=== PATIENT | male | born 1965 | race Caucasian/White ===

== ENCOUNTER → 2017-03-03 | Day surgery (SDC) | payer OTHER ==
[~2017-03-03] VITALS: Ht 177.8 cm; Wt 74.8 kg
[~2017-03-03] MED LIST: 0.9% Sodium Chloride 1,000 ML IV PRN; AZIT500T5 PO; Sodium Chloride LOK Flush 10 mL Syringe IV PRN; fentaNYL-PF 50 mCg/mL 2 mL Inj IVPUSH PRN
[2017-03-03 12:57] VITALS: BP 120/81; PULSE 57; RESP 16; O2SAT 100
[2017-03-03] MEDS: 0.9% Sodium Chloride 1,000 ML IV SCH ×2 (13:01→15:16)
[2017-03-03 15:29] VITALS: BP 118/80; PULSE 74; RESP 16; O2SAT 99
[2017-03-03 15:39] VITALS: BP 112/73; PULSE 75; RESP 16; O2SAT 100
--- NOTE | 2017-03-03 15:49 | ENDO ---
[address] [address] ENDOSCOPY PROCEDURE PATIENT: DIAMOND MTZ : 1965 MR#: [id number] ADMIT: 03/03/2017 JOB ID: [id number] CORRECTED REPORT: DATE: 03/03/2017 PROCEDURE: Colonoscopy. INDICATION: Screening. The patient's ASA classification is one. Mallampati score is two. MEDICATIONS: Versed 5 mg, fentanyl 100 mcg. INSTRUMENT USED: [id number] PREPARATION QUALITY: Fair. PROCEDURE DETAILS: After informed consent was obtained, the patient was brought to the GI suite, where he was placed on oxygen via nasal cannula and monitored with continuous pulse oximeter, telemetry, and blood pressure monitoring. A time-out was performed. Then, he was placed in left lateral decubitus position and medications were administered for sedation. Digital rectal exam was performed which was unremarkable. The colonoscope was then inserted into the rectum and advanced under direct visualization to the cecum, which was identified by the presence of the ileocecal valve and appendiceal orifice. Once the cecum was reached, the colonoscope was withdrawn back into the rectum and mucosa and lumen were examined. In the rectum, retroflexion was performed. Following retroflexion, remaining air in the rectum was suctioned and the procedure was completed. FINDINGS: In the descending colon was a 5 mm sessile polyp that was removed with cold snare. The remainder of the colon exam was otherwise unremarkable. IMPRESSION: Descending colon polyp. RECOMMENDATIONS: Repeat colonoscopy in five years, sooner if symptoms should dictate. COMPLICATIONS: None. ESTIMATED BLOOD LOSS: Less than 5 mL Corrected by GS 03/09/17 at 7:28am DOS
--- NOTE | 2017-03-08 18:15 | PATH ---
SURGICAL PATHOLOGY Attending Physician:Erasto Albrecht CASE STATUS: Signed Out PATIENT NAME: DIAMOND MTZ PID: [id number] : 1965 DATE COLLECTED:03/03/2017 00:00 SPECIMEN: Colon, Polyp CLINICAL HISTORY: 1). DESCENDING COLON POLYP FINAL DIAGNOSIS: Descending Colon Polyp, Biopsy: Tubular adenoma. ICD10: D12.4 GROSS DESCRIPTION: The specimen is received in one formalin filled container labeled with the patient's name, sublabeled "descending colon polyp" and consists of 4 portions of tissue which aggregate to 0.4 x 0.4 x 0.3 CM. The specimen is entirely submitted in one cassette. 03/06/2017TN ICD-9 CODES: CPT CODES: 1: 51387 Electronically Signed Out Tori Aguilar MD [facility] Pathology [facility], [place] [address] Technical component performed at [facility], [address] [place] [address] Ave[address], [place], [address]
== END | disposition home or self-care (01) ==
LOC: END 00:06
PROVIDERS: ATTEND Internal Medicine Gastroenterology
DX: Z12.11 Encounter for screening for malignant neoplasm of colon (principal); D12.4 Benign neoplasm of descending colon; R73.03 Prediabetes; R79.89 Other specified abnormal findings of blood chemistry
CPT/HCPCS: 45385; G0500; J2250; J3010; J7030